=== PATIENT | male | born 1990 | race Caucasian/White ===

== ENCOUNTER 2019-09-11 04:25 | Emergency (ER) | payer MEDICAID ==
[~2019-09-11] VITALS: Ht 185.4 cm; Wt 110.0 kg
--- NOTE | 2019-09-11 04:37 | NUR ---
PT REPORTS INCREASING REDNESS AND DRAINAGE FROM SURGICAL INCISION S/P VASECTOMY. PT REPORTS OPEN WOUND W/ SOME DRAINAGE. PT MISSED SURGICAL FOLLOW UP APPOINTMENT ON MONDAY R/T WORK.
[2019-09-11] MEDS ORDERED: CLINDAMYCIN PMX 900MG/50ML 50 ML ONE (04:56)
[2019-09-11] MEDS ORDERED: ONDANSETRON 2MG/ML, 2ML ONE (04:56)
[2019-09-11] MEDS ORDERED: MORPHINE SULFATE 4 MG/ML, 1ML ONE (04:57)
[2019-09-11] MEDS ORDERED: MORPHINE SULFATE 4 MG/ML, 1ML IVPush PRN (05:00)
[2019-09-11] MEDS ORDERED: SODIUM CHLORIDE FLUSH 10ML SYR IVF ONE (05:00)
[2019-09-11] MEDS ORDERED: SODIUM CHLORIDE 0.9% 1,000ML IVBOLUS ONE (05:00)
[2019-09-11] MEDS ORDERED: CLINDAMYCIN PMX 900MG/50ML 50 ML IV ONE (05:00)
[2019-09-11] MEDS ORDERED: ONDANSETRON 2MG/ML, 2ML IVPush ONE (05:00)
[2019-09-11 05:10] LABS: MEAN CORPUSCULAR HEMOGLOBIN 29.3 pg (27.5-34.5); MEAN CORPUSCULAR HGB CONC 33.8 g/dL (33.2-36.2); MEAN CORPUSCULAR VOLUME 86.7 fL (81-97); MEAN PLATELET VOLUME 8.1 fL (7.4-10.4); PLATELET COUNT 208 x10^3/uL (130-400); RED BLOOD COUNT 5.61 x10^6/uL (4.38-5.82)
[2019-09-11 05:21] LABS: ANION GAP 5 mmol/L (5-15); CALCIUM 8.9 mg/dL (8.5-10.1); CHLORIDE 108 mmol/L (98-107); CREATININE 1.12 mg/dL (0.7-1.3)
[2019-09-11 05:22] LABS: ALBUMIN 3.4 g/dL (3.4-5.0)
--- NOTE | 2019-09-11 05:28 | NUR ---
0457: PIV PLACED IN RAC, MEDICATED FOR NAUSEA AND PAIN ORDERED PROVIDED W/ WARM BLANKETS. UPDATED ON POC INCLUDING PENDING TESTS, MEDICATIONS AND CHART REVIEW BY ERP
--- NOTE | 2019-09-11 05:29 | NUR ---
0518: IVF AND ANTIBX INFUSING ORDERED. CALL LIGHT IN REACH. PT AND FAMILY DENY FURTHER NEEDS AT THIS TIME.
--- NOTE | 2019-09-11 05:42 | NUR ---
WOUND CULTURE COLLECTED BY ERP. CULTURE SENT TO LAB. PT AND FAMILY AWARE OF POC INCLUDING PENDING US
[2019-09-11 05:46] LABS: BASOPHILS # (AUTO) 0.04 x10^3/uL (0-0.1); BASOPHILS % (AUTO) 0 % (0-1); EOSINOPHILS # (AUTO) 0.05 x10^3/uL (0-0.4); EOSINOPHILS % (AUTO) 0 % (1-7); LYMPHOCYTES # (AUTO) 0.86 x10^3/uL (1-3.4); LYMPHOCYTES % (AUTO) 5 % (22-44); MD SCAN; MONOCYTES # (AUTO) 0.89 x10^3/uL (0.2-0.8); MONOCYTES % (AUTO) 5 % (2-9); NEUTROPHILS # (AUTO) 14.59 x10^3/uL (1.8-6.8); NEUTROPHILS % (AUTO) 89 % (42-75)
--- NOTE | 2019-09-11 06:15 | NUR ---
LAB AT BEDSIDE TO COLLECT BC. 2ND NS INFUSING ORDERED. PT AWARE NEED UA
--- NOTE | 2019-09-11 06:20 | NUR ---
labs - us delay
--- NOTE | 2019-09-11 06:25 | NUR ---
PT TO US VIA [facility]
[2019-09-11] MEDS ORDERED: SODIUM CHLORIDE 0.9%, 500ML IVBOLUS ONE (06:30)
--- NOTE | 2019-09-11 06:54 | NUR ---
REPORT TO DOMINGO SALDANA
--- NOTE | 2019-09-11 07:08 | NUR ---
ASSUMED CARE OF PT, PT RETURNED TO FROM US. VS UPDATED. UA COLLECTED AND SENT TO LAB. NO OTHER NEEDS AT THIS TIME
[2019-09-11 07:34] LABS: MICROSCOPIC INDICATED
[2019-09-11 07:36] LABS: CULTURE INDICATED? YES
--- NOTE | 2019-09-11 07:47 | NUR ---
dr lockhart spoke with dr zamora
[2019-09-11 08:00] VITALS: BP 108/63
--- NOTE | 2019-09-11 08:11 | NUR ---
Patient/Caregiver given discharge instructions and they have confirmed that they understand the instructions. Patient ambulatory with steady gait.
== END 2019-09-11 08:19 | disposition home or self-care (01) ==
LOC: ED 05:25
DX: N49.2 Inflammatory disorders of scrotum (principal); Z79.899 Other long term (current) drug therapy; Z98.52 Vasectomy status
CPT/HCPCS: 36415; 76870; 80048; 81001; 82040; 83605; 84145; 85025; 87040; 87070; 87086; 87147; 87205; 93975; 96365; 96375; 99284; J2270; J2405; J7030; J7040

== ENCOUNTER 2020-11-13 09:08 | Emergency (ER) | payer MEDICAID ==
[~2020-11-13] VITALS: Ht 185.4 cm; Wt 105.0 kg
[2020-11-13] MEDS ORDERED: METHOCARBAMOL 750 MG TABLET PO ONE (09:30)
[2020-11-13] MEDS ORDERED: HYDROmorphone 2 MG/ML, 1ML IM ONE (09:30)
[2020-11-13] MEDS ORDERED: KETOROLAC 30 MG/1 ML IM ONE (09:30)
[2020-11-13] MEDS ORDERED: ONDANSETRON ODT 4 MG PO ONE (09:30)
[2020-11-13] MEDS ORDERED: ONDANSETRON ODT 4 MG ONE (09:44)
[2020-11-13] MEDS ORDERED: METHOCARBAMOL 750 MG TABLET ONE (09:44)
[2020-11-13] MEDS ORDERED: KETOROLAC 60 MG/2 ML ONE (09:44)
[2020-11-13] MEDS ORDERED: HYDROmorphone 1 MG/ML, 1ML INJ ONE (09:45)
--- NOTE | 2020-11-13 09:59 | NUR ---
PT MEDICATED PER ERP ORDER FOR 9/10 R HIP PAIN. BP CUFF, PULSE OX IN PLACE. AT BS, CALL LIGHT WITHIN REACH.
--- NOTE | 2020-11-13 10:42 | NUR ---
PT ASSISTED WITH GETTING DRESSED. DISCHARGRED HOME-PER PT CURRENTLY LIVING ON [address] IN [facility].
--- NOTE | 2020-11-13 10:49 | NUR ---
PULSE OX DIPPING TO 88-90% WHILE PT RESTING. OXYGEN PLACED AT 2LITERS VIA NC. VS UPDATED IN COMPUTER. PT RATES PAIN AT 6/10 WITHOUT MOVEMENT, UP TO 9/10 WITH. ERP NOTIFIED.
[2020-11-13] MEDS ORDERED: DIAZEPAM 5 MG TABLET ONE (10:51)
[2020-11-13] MEDS ORDERED: DIAZEPAM 5 MG TABLET PO ONE (11:00)
--- NOTE | 2020-11-13 11:33 | NUR ---
PT STATES PAIN BETTER BUT STILL UNABLE TO ROTATE HIP OR BEAR WEIGHT ON RLE. PT UP FOR RECHECK BY ERP.
[2020-11-13 13:38] VITALS: BP 122/61
== END 2020-11-13 13:40 | disposition home or self-care (01) ==
LOC: ED 09:44
DX: S73.111A Iliofemoral ligament sprain of right hip, initial encounter (principal); X58.XXXA Exposure to other specified factors, initial encounter; Y93.89 Activity, other specified; Y92.89 Other specified places as the place of occurrence of the external cause; Y99.8 Other external cause status
CPT/HCPCS: 73502; 96372; 99284; J1170; J1885; Q0162